=== PATIENT | female | born 1945 | race Caucasian/White ===

== ENCOUNTER 2021-12-24 12:16 | Inpatient (IN) | payer OTHER ==
[2021-12-24] MEDS ORDERED: IBUPROFEN 400 MG TABLET (FP) PO PRN (13:04)
[2021-12-24] MEDS ORDERED: MAGNESIUM HYDROX 2400MG/30ML ORAL SUSPENSION 30 ML CUP PO PRN (13:04)
[2021-12-24] MEDS ORDERED: NALOXONE (NARCAN) HCL 4 MG/0.1 ML SPRAY NS PRN (13:04)
[2021-12-24] MEDS ORDERED: BISMUTH SUBSALICYLATE 524 MG/30 ML PO PRN (13:04)
[2021-12-24] MEDS ORDERED: NICOTINE 10 MG CARTRIDGE (INHALER) IH PRN (13:04)
[2021-12-24] MEDS ORDERED: MAG HYDROX/AL HYDROX/SIMETH 30 ML UNIT-DOSE CUP PO PRN (13:04)
[2021-12-24] MEDS ORDERED: ACETAMINOPHEN 325 MG TABLET (FP) PO PRN ×2 (13:04)
[2021-12-24] MEDS ORDERED: MENTHOL/PHENOL 1 EACH UD MM PRN (13:04)
[2021-12-24] MEDS ORDERED: MAGNESIUM CITRATE 300 ML BOTTLE PO PRN (13:04)
[2021-12-24 14:05] VITALS: BMI 28.3
[2021-12-24] MEDS: hydrOXYzine PAMOATE 25 MG CAPSULE (FP) PO SCH ×4 (16:15→23:39)
[2021-12-24] MEDS: METHOCARBAMOL 500 MG TABLET PO PRN (17:32)
[2021-12-24] MEDS: LOPERAMIDE HCL 2 MG CAPSULE PO PRN (17:32)
[2021-12-24] MEDS: ALBUTEROL SO4 HFA INHALER IH PRN (17:34)
[2021-12-24] MEDS: MELATONIN 5 MG TABLETS PO SCH ×2 (23:01→23:38)
[2021-12-24] MEDS: THIAMINE HCL 100 MG TABLET (FP) PO SCH ×2 (23:01→23:39)
[2021-12-25] MEDS: ONDANSETRON *ODT* 4 MG TABLET SL PRN (01:06)
[2021-12-25] MEDS: ALBUTEROL SO4 HFA INHALER IH PRN (01:46)
[2021-12-25] MEDS: METHOCARBAMOL 500 MG TABLET PO PRN (02:05)
[2021-12-25] MEDS ORDERED: TRIMETHOBENZAMIDE HCL 200MG/2ML INJ IM ONE (04:58)
[2021-12-25] MEDS: hydrOXYzine PAMOATE 25 MG CAPSULE (FP) PO SCH ×2 (05:21→11:21)
[2021-12-25 09:58] LABS: HEMATOCRIT 43.2 % (32.4-45.2); HEMOGLOBIN 14.8 GM/dL (10.7-15.3); MCH 28.4 pg (25.7-33.7); MCHC 34.3 g/dl (32.0-36.0); MEAN CELL VOLUME 82.6 fl (80-96); MEAN PLT VOLUME 7.9 fl (7.5-11.1); PLATELET COUNT 235 10^3/uL (134-434); RBC 5.23 M/mm3 (3.60-5.2); RDW 14.5 % (11.6-15.6); WHITE BLOOD COUNT 10.3 K/mm3 (4.0-10.0)
[2021-12-25 10:00] LABS: CALCIUM 9.7 mg/dL (8.5-10.1)
[2021-12-25 10:01] LABS: BLOOD UREA NITROGEN 17.5 mg/dL (7-18)
[2021-12-25] MEDS ORDERED: cloNIDine HCL 0.1 MG TABLET PO ONE (10:03)
[2021-12-25] MEDS ORDERED: BUPRENORPHINE HCL 150 MCG, BUPRENORPHINE HCL 75 MCG BC ONE (10:03)
[2021-12-25 10:04] LABS: BILIRUBIN,TOTAL 0.9 mg/dL (0.2-1); CREATININE 0.8 mg/dL (0.55-1.3)
[2021-12-25 10:05] LABS: TOT PROT 7.8 g/dl (6.4-8.2)
[2021-12-25] MEDS ORDERED: BUPRENORPHINE HCL 75 MCG FILM BC ONE (11:17)
[2021-12-25] MEDS ORDERED: BUPRENORPHINE HCL 150 MCG FILM BC ONE (11:17)
[2021-12-25] MEDS: PRENATAL VITAMINS W/ FOLIC ACID TABLET (FP) PO SCH (11:20)
[2021-12-25] MEDS: LIDOCAINE 5% TOPICAL PATCH TP SCH (11:23)
[2021-12-25] MEDS: diazePAM 5 MG TABLET PO PRN ×2 (18:36→23:36)
[2021-12-25] MEDS: cloNIDine HCL 0.1 MG TABLET PO PRN (18:36)
[2021-12-25] MEDS: MELATONIN 5 MG TABLETS PO SCH (23:02)
[2021-12-25] MEDS: THIAMINE HCL 100 MG TABLET (FP) PO SCH (23:02)
[2021-12-25] MEDS: LIDOCAINE PATCH REMOVAL MC SCH (23:03)
[2021-12-26] MEDS ORDERED: BUPRENORPHINE HCL 75 MCG FILM BC ONE ×2 (04:14→17:28)
[2021-12-26] MEDS ORDERED: BUPRENORPHINE HCL 150 MCG FILM BC ONE ×2 (04:14→17:27)
[2021-12-26] MEDS: BUPRENORPHINE HCL 150 MCG, BUPRENORPHINE HCL 75 MCG BC SCH ×2 (05:58→17:38)
[2021-12-26 10:08] LABS: SARS-CoV-2 NAA Not Detected (Not Detected)
[2021-12-26] MEDS: LIDOCAINE 5% TOPICAL PATCH TP SCH (10:39)
[2021-12-26] MEDS: PRENATAL VITAMINS W/ FOLIC ACID TABLET (FP) PO SCH (10:40)
[2021-12-26] MEDS: cloNIDine HCL 0.1 MG TABLET PO PRN ×2 (10:41→17:38)
[2021-12-26] MEDS: LOPERAMIDE HCL 2 MG CAPSULE PO PRN (15:11)
[2021-12-26] MEDS: LIDOCAINE PATCH REMOVAL MC SCH (22:31)
[2021-12-26] MEDS: diazePAM 5 MG TABLET PO PRN (22:31)
[2021-12-26] MEDS: THIAMINE HCL 100 MG TABLET (FP) PO SCH (22:31)
[2021-12-26] MEDS: MELATONIN 5 MG TABLETS PO SCH (22:31)
[2021-12-27] MEDS: BUPRENORPHINE HCL 450 MCG FILM BC SCH ×2 (07:21→18:34)
[2021-12-27] MEDS ORDERED: TRIMETHOBENZAMIDE HCL 200MG/2ML INJ IM ONE (09:09)
[2021-12-27] MEDS ORDERED: methaDONE HCL 10 MG TABLET (FOR DETOX USE ONLY) PO ONE (09:31)
[2021-12-27] MEDS: LOPERAMIDE HCL 2 MG CAPSULE PO PRN (09:36)
[2021-12-27] MEDS ORDERED: diazePAM 5 MG TABLET PO PRN (10:28)
[2021-12-27] MEDS ORDERED: DIPHENOXYLATE 2.5/ATROPINE.025 1 COMBO TABLET PO PRN (10:57)
[2021-12-27] MEDS: PRENATAL VITAMINS W/ FOLIC ACID TABLET (FP) PO SCH (11:03)
[2021-12-27] MEDS: LIDOCAINE 5% TOPICAL PATCH TP SCH (11:09)
[2021-12-27] MEDS: cloNIDine HCL 0.1 MG TABLET PO PRN ×2 (18:35→23:17)
[2021-12-27] MEDS: hydrOXYzine PAMOATE 25 MG CAPSULE (FP) PO PRN ×2 (18:35→23:15)
[2021-12-27] MEDS: LIDOCAINE PATCH REMOVAL MC SCH (23:14)
[2021-12-27] MEDS: MELATONIN 5 MG TABLETS PO SCH (23:14)
[2021-12-27] MEDS: THIAMINE HCL 100 MG TABLET (FP) PO SCH (23:15)
[2021-12-27] MEDS: ONDANSETRON *ODT* 4 MG TABLET SL PRN (23:24)
[2021-12-28] MEDS: BUPRENORPHINE/NALOXONE 4 MG/1 MG FILM PACKET SL SCH ×2 (06:12→17:56)
[2021-12-28] MEDS ORDERED: methaDONE HCL 10 MG TABLET (FOR DETOX USE ONLY) PO ONE (10:00)
[2021-12-28] MEDS: LIDOCAINE 5% TOPICAL PATCH TP SCH (12:32)
[2021-12-28] MEDS: PRENATAL VITAMINS W/ FOLIC ACID TABLET (FP) PO SCH (12:32)
[2021-12-28 13:09] LABS: BLOOD UREA NITROGEN 23.2 mg/dL (7-18); CALCIUM 9.5 mg/dL (8.5-10.1)
[2021-12-28 13:12] LABS: CREATININE 0.9 mg/dL (0.55-1.3)
[2021-12-28 13:14] LABS: BILIRUBIN,TOTAL 0.9 mg/dL (0.2-1); TOT PROT 6.9 g/dl (6.4-8.2)
[2021-12-28 13:19] LABS: ALBUMIN 3.2 g/dl (3.4-5.0)
[2021-12-28] MEDS ORDERED: POTASSIUM CHLORIDE TABS 20 MEQ TABLET.ER (FP) PO ONE (14:28)
[2021-12-28] MEDS ORDERED: POTASSIUM CHLORIDE ORAL LIQUID 20 MEQ/15 ML PO ONE (15:37)
[2021-12-28] MEDS: ONDANSETRON *ODT* 4 MG TABLET SL PRN (17:55)
[2021-12-28] MEDS: MELATONIN 5 MG TABLETS PO SCH (23:18)
[2021-12-28] MEDS: LIDOCAINE PATCH REMOVAL MC SCH (23:18)
[2021-12-28] MEDS: THIAMINE HCL 100 MG TABLET (FP) PO SCH (23:19)
[2021-12-29] MEDS ORDERED: BUPRENORPHINE/NALOXONE 8 MG/2 MG FILM PACKET SL ONE (06:00)
[2021-12-29] MEDS ORDERED: POTASSIUM CHLORIDE TABS 20 MEQ TABLET.ER (FP) PO SCH (10:00)
[2021-12-29] MEDS: PRENATAL VITAMINS W/ FOLIC ACID TABLET (FP) PO SCH (11:10)
[2021-12-29] MEDS: LIDOCAINE 5% TOPICAL PATCH TP SCH (11:10)
[2021-12-29 13:13] VITALS: BP 106/72; PULSE 68; TEMP 98.3
[2021-12-29] MEDS ORDERED: POTASSIUM CHLORIDE ORAL LIQUID 20 MEQ/15 ML PO SCH (22:00)
== END 2021-12-29 15:25 | disposition home or self-care (01) | DRG 897 ==
LOC: YASAS 12:16 → Y3N 14:53
PROVIDERS: ADMIT Allergy & Immunology; ATTEND Allergy & Immunology
PROC: HZ2ZZZZ Detoxification Services for Substance Abuse Treatment (ICD-10-PCS; principal; 2021-12-24)
DX: F11.23 Opioid dependence with withdrawal (principal); F32.A Depression, unspecified; F41.9 Anxiety disorder, unspecified; J45.909 Unspecified asthma, uncomplicated; M19.90 Unspecified osteoarthritis, unspecified site; M54.9 Dorsalgia, unspecified; R19.7 Diarrhea, unspecified; Z87.891 Personal history of nicotine dependence
CPT/HCPCS: 36415; 80053; 85027; 86780; 93005; 93010; C9803; J0735; Q0162; U0003; U0005